=== PATIENT | female | born 2000 | race Caucasian/White ===

== ENCOUNTER 2019-04-24 13:21 | Emergency (ER) | payer BC ==
--- NOTE | 2019-04-24 15:14 | ED ---
Head Injury - HPI Summary HPI Summary: 19 yo female presents with head injury. She tells me that last night she was playing soccer and another player stepped on the back of her head. Pt sat out for a few minutes, but returned to play. No LOC and had no symptoms at the time. Later that evening she was at home resting and noticed she had a headache , light sensitivity, nausea, and vomited x1. She slept last night and this morning woke up with a mild headache. She tried to go to classes today, but her headache worsened and has been accompanied by nausea - prompting her visit to the ED. She has not taken anything OTC for her discomfort. Denies fever, chills , SOB, chest pain, dizziness, vision changes, numbness, or tingling. - History Of Current Complaint Chief Complaint: EDHeadInjury Stated Complaint: POSSIBLE HEAD INJURY Time Seen by Provider: 04/24/19 15:13 Hx Obtained From: Patient Severity Currently: Moderate Severity Initially: Moderate Pain Intensity: 6 Pain Scale Used: 0-10 Numeric - Allergies/Home Medications Allergies/Adverse Reactions: Allergies Allergy/AdvReac Type Severity Reaction Status Date / Time No Known Allergies Allergy Verified 04/24/19 13:53 PMH/Surg Hx/FS Hx/Imm Hx Endocrine/Hematology History: Denies: Hx Blood Disorders, Hx Diabetes Cardiovascular History: Denies: Hx Hypotension, Hx Hypertension Respiratory History: Denies: Hx Asthma, Hx Chronic Obstructive Pulmonary Disease (COPD) Neurological History: Denies: Hx CVA, Hx Headaches, Hx Migraine Psychiatric History: Denies: Hx Anxiety, Hx Depression - Surgical History Surgical History: None - Immunization History Immunizations Up to Date: Yes Infectious Disease History: No Infectious Disease History: Denies: Traveled Outside the [place] in Last 30 Days - Family History Known Family History: Positive: Non-Contributory - Social History Occupation: Student Lives: Dormitory/Roommates Alcohol Use: Occasionally Substance Use Type: Reports: None Smoking Status (MU): Never Smoked Tobacco Review of Systems Constitutional: Negative Eyes: Negative Positive: Epistaxis Cardiovascular: Negative Respiratory: Negative Positive: Nausea Genitourinary: Negative Musculoskeletal: Negative Skin: Negative Positive: Headache Psychological: Normal All Other Systems Reviewed And Are Negative: No Physical Exam - Summary Physical Exam Summary: GENERAL: NAD. WDWN. No pain distress. SKIN: No rashes, sores, ulcers, masses, lesions. HEENT: Head: AT/NC. No raccoon eyes or battles sign. Eyes: PERRLA. EOM intact. Conjunctiva clear without inflammation or discharge. Ears: Hearing grossly normal. TMs intact, no bulging, erythema, or edema. No hemotympanum Nose: Nasal mucosa pink and moist. NTTP maxillary and frontal sinus. Throat: Posterior oropharynx without exudates, erythema, or tonsillar enlargement. Uvula midline. NECK: Supple. Nontender. FROM CHEST: CTAB. No r/r/w. No accessory muscle use. Breathing comfortably and in no distress. CV: RRR. Pulses intact. Brisk cap refill. ABDOMEN: Soft. NTTP. Bowel sounds present MSK: FROM in B/L UEs and LEs with symmetric strength. NEURO: A&Ox3. 3 word recall, remote, recent memory, ability to follow 2-step directions, and attention intact. CN: II: Peripheral adair intact. Vision normal. III, IV, : EOMI. No nystagmus. PERRLA. V: Sensations intact and symmetric. Opens mouth and clenches teeth. VII: No facial asymmetry. Forehead wrinkles. Grins, shuts eyes, frowns, puffs cheeks. VIII: Hearing intact to finger rub. IX, X: Swallows and coughs. Uvula midline. XI: Shrugs shoulders. Turns head against resistance. XII: No tongue deviation [id number] are intact. Gait with normal base. Romberg: maintains balance, no pronator drift. Normal speech. No facial drooping. PSYCH: Age appropriate behavior. Triage Information Reviewed: Yes Vital Signs On Initial Exam: Initial Vitals Temp Pulse Resp BP Pulse Ox 97.5 F 50 14 137/92 100 04/24/19 13:50 04/24/19 13:50 04/24/19 13:50 04/24/19 13:50 04/24/19 13:50 Vital Signs Reviewed: Yes Procedures - Sedation Patient Received Moderate/Deep Sedation with Procedure: No Diagnostics - Vital Signs Vital Signs Temp Pulse Resp BP Pulse Ox 04/24/19 13:50 97.5 F 50 14 137/92 100 - Laboratory Lab Statement: Any lab studies that have been ordered have been reviewed, and results considered in the medical decision making process. - CT Brain CT Interpretation Completed By: Radiologist Summary of CT Findings: IMPRESSION: NO ACUTE INTRACRANIAL PATHOLOGY. Re-Evaluation - Re-Evaluation First Eval Re-Evaluation Time: 16:39 Change: Improved Comment: Reviewed CT results. Pt improved headache s/p medications Head Injury Course/Dx Course Of Treatment: CT as above. In the ED pt was given 1L NS, reglan, benadryl, and toradol for her headache and nausea and felt significantly improved. I suspect she may have a mild concussion given her symptoms. Recommended that she refrain from activities that worsen her symptoms and educated on brain rest. Advised to f/u with [facility] this week for a recheck - Diagnoses Provider Diagnoses: Head injury Discharge ED - Sign-Out/Discharge Documenting (check all that apply): Patient Departure - Discharge Plan Condition: Stable Disposition: HOME Prescriptions: Ondansetron ODT TAB* [Zofran 4 MG Odt TAB*] 4 mg PO Q8H PRN #12 tab.odt PRN Reason: Nausea Patient Education Materials: Concussion (ED), Post Concussion Syndrome (ED) Forms: *School Release Referrals: [facility] - Dre STEWARD [Primary Care Provider] - 2 Days Additional Instructions: If you develop a fever, shortness of breath, chest pain, new or worsening symptoms - please call your PCP or go to the ED immediately. Rest and avoid activities that worsen your headache symptoms such as texting, computer screens, reading, and physical activities. I strongly recommend that you follow up with [facility] in 2-3 days for a recheck of your symptoms May take tylenol/ibuprofen as directed for headache - Billing Disposition and Condition Condition: STABLE Disposition: Home
[2019-04-24] MEDS ORDERED: Ketorolac INJ* 30 MG/ML 1 ML VIAL IV ONE (15:45)
[2019-04-24] MEDS ORDERED: NS 0.9% 1000 ML** 1,000 ML IV ONE (15:45)
[2019-04-24] MEDS ORDERED: Metoclopramide IV* 5 MG/ML 2 ML VIAL IV ONE (15:45)
[2019-04-24] MEDS ORDERED: diPHENhydraMINE IV* 50 MG/ML 1 ml VIAL (BENADRYL) IV ONE (15:45)
[2019-04-24 16:47] VITALS: BP 114/56
== END 2019-04-24 16:41 | disposition home or self-care (01) ==
LOC: ED 13:21
DX: S09.90XA Unspecified injury of head, initial encounter (principal); W50.0XXA Accidental hit or strike by another person, initial encounter; Y93.66 Activity, soccer; Y92.322 Soccer field as the place of occurrence of the external cause
CPT/HCPCS: 70450; 96361; 96374; 96375; 99282; J1200; J1885; J2765